=== PATIENT | female | born 1980 | race Caucasian/White ===

== ENCOUNTER 2016-10-15 23:25 | Emergency (ER) | payer OTHER ==
[~2016-10-15] VITALS: Ht 162.6 cm; Wt 82.3 kg
[2016-10-15 23:35] VITALS: BP 115/81
--- NOTE | 2016-10-16 00:15 | NUR ---
PT TAKEN TO OF
--- NOTE | 2016-10-16 00:32 | NUR ---
Dr. Mcclelland evaluating patient
[2016-10-16 00:50] VITALS: BP 125/73
--- NOTE | 2016-10-16 00:50 | NUR ---
Patient discharged with v/s stable. Written and verbal after care instructions given and explained. Patient alert, oriented and verbalized understanding of instructions. Ambulatory with steady gait. All questions addressed prior to discharge. ID band removed. Patient advised to follow up with PMD. Rx of Phenergan DM given. Patient educated on indication of medication including possible reaction and side effects. Opportunity to ask questions provided and answered.
== END 2016-10-16 00:50 | disposition home or self-care (01) ==
LOC: MED 23:25
DX: J20.9 Acute bronchitis, unspecified (principal)
CPT/HCPCS: 71020; 99284

== ENCOUNTER 2017-12-06 12:05 | Emergency (ER) | payer OTHER ==
[~2017-12-06] VITALS: Ht 162.6 cm; Wt 68.0 kg
[2017-12-06 12:07] VITALS: BP 135/89
--- NOTE | 2017-12-06 12:11 | NUR ---
PATIENT AMBULATED TO BED 8 AT THIS TIME.
--- NOTE | 2017-12-06 12:20 | NUR ---
PATIENT PRESENTS TO ED WITH COMPLAINTS OF SHAKINESS, COLD/HOT FLASHES, AND GENERALIZED ILL FEELING. PATIENT STATES SHE HAS AN ONGOING TOOTHACHE AND A COWORKER GAVE HER A NORCO AND SHE HAS FELT ILL SINCE. SKIN IS PINK/WARM/DRY; AAOX4 WITH EVEN AND STEADY GAIT; LUNGS CLEAR BL; HR EVEN AND REGULAR; PT DENIES ANY FEVER, CP, SOB, OR COUGH AT THIS TIME; PATIENT STATES PAIN OF 0/10 AT THIS TIME; VSS; PATIENT POSITIONED FOR COMFORT; HOB ELEVATED; BEDRAILS UP X1; BED DOWN. ER MD MADE AWARE OF PT STATUS.
[2017-12-06] MEDS ORDERED: NACL 0.9% 1,000 ML IV ONE (13:00)
[2017-12-06 13:41] VITALS: BP 135/89
--- NOTE | 2017-12-06 13:42 | NUR ---
Patient discharged with v/s stable. Written and verbal after care instructions given and explained. Patient alert, oriented and verbalized understanding of instructions. Ambulatory with steady gait. All questions addressed prior to discharge. ID band removed. Patient advised to follow up with PMD. Rx of MOTERIN AND TRAMADOL given. Patient educated on indication of medication including possible reaction and side effects. Opportunity to ask questions provided and answered.
== END 2017-12-06 13:42 | disposition home or self-care (01) ==
LOC: MED 12:05
DX: K08.89 Other specified disorders of teeth and supporting structures (principal); R53.1 Weakness
CPT/HCPCS: 99283

== ENCOUNTER 2017-12-22 05:37 | Emergency (ER) | payer OTHER ==
[~2017-12-22] VITALS: Ht 162.6 cm; Wt 69.6 kg
[2017-12-22 05:45] VITALS: BP 117/77
[2017-12-22] MEDS ORDERED: IBUPROFEN 800 MG TAB PO ONE (06:00)
[2017-12-22] MEDS ORDERED: ONDANSETRON 4 MG ODT PO ONE (06:00)
[2017-12-22] MEDS ORDERED: SUMAtriptan 6 MG/0.5 ML VIAL SUBQ ONE (06:00)
[2017-12-22 06:43] VITALS: BP 117/77
== END 2017-12-22 06:43 | disposition home or self-care (01) ==
LOC: MED 05:37
DX: R51 Headache (principal); R11.0 Nausea
CPT/HCPCS: 96372; 99283; J3030; S0119

== ENCOUNTER 2018-09-13 11:47 | Emergency (ER) | payer SELFPAY ==
[~2018-09-13] VITALS: Ht 162.6 cm; Wt 65.8 kg
[2018-09-13 12:05] VITALS: BP 131/78
--- NOTE | 2018-09-13 12:08 | NUR ---
PT SENT TO LOBBY TO WAIT FOR A BED.
--- NOTE | 2018-09-13 13:06 | NUR ---
PT AMBULATED TO BED 01.
--- NOTE | 2018-09-13 13:15 | NUR ---
PT BIB SELF TO THE ED WITH THE CHIEF C/O ABSCESS IN BETWEEN BREAST X TUESDAY. PT STATES IT WAS PIMPLE AND SQUEEZE. STARTED TO GET RED AND SWELLING SINCE THEN. PT HAD B/L BREAST SURGERY ON JULY. PT WAS SEEN BY DOCTOR IN [place] AND IS TAKING LEVOFLOXACIN AND CLARITIN SINCE THEN. REPORTS PUS DISCHARGE FROM ABSCESS. DENIES FEVER. DENIES ANY N/V/D. DENIES ANY OTHER PROBLEM AT THIS TIME. AFEBRILE. STATES PAIN OF 9/10 AT THIS TIME. VSS. ER AWARE.
[2018-09-13] MEDS ORDERED: CLINDAMYCIN 600 MG in DEXTROSE 5% 50 ML IV ONE (14:00)
[2018-09-13] MEDS ORDERED: NACL 0.9% 1,000 ML IV ONE (14:00)
[2018-09-13 14:33] LABS: BASOPHILS % (AUTO) 0.4 % (0.0-2.0); EOSINOPHILS # (AUTO) 0.2 K/uL (0-0.4); EOSINOPHILS % (AUTO) 1.8 % (0.0-4.0); HEMATOCRIT 32.4 % (36-48); HEMOGLOBIN 10.6 g/dL (12.0-16.0); LYMPHOCYTES # (AUTO) 1.1 K/uL (2.5-16.5); LYMPHOCYTES % (AUTO) 8.6 % (20.5-51.1); MEAN CORPUSCULAR HEMOGLOBIN 30 pg (27-31); MEAN CORPUSCULAR HGB CONC 33 g/dL (33-37); MEAN CORPUSCULAR VOLUME 91.2 fL (80-94); MONOCYTES % (AUTO) 8.2 % (1.7-9.3); NEUTROPHILS # (AUTO) 10.2 K/uL (1.8-7.7); PLATELET COUNT (AUTO) 220 K/uL (140-450); RED BLOOD CELL COUNT(AUTO) 3.55 MIL/uL (4.20-5.40); RED CELL DISTRIBUTION WIDTH 14.2 % (11.6-13.7); WHITE BLOOD COUNT (AUTO) 12.5 K/uL (4.8-10.8)
[2018-09-13 14:50] LABS: CARBON DIOXIDE 27.5 mmol/L (21-32); CREATININE 0.6 mg/dL (0.6-1.3); POTASSIUM 3.5 mmol/L (3.5-5.1); TOTAL BILIRUBIN 0.4 mg/dL (0.0-1.0)
[2018-09-13] MEDS ORDERED: CLINDAMYCIN 600 MG/4 ML VIAL ONE (15:54)
--- NOTE | 2018-09-13 17:00 | NUR ---
PT APPEARS RELAXED RESTING IN BED. NO C/O PAIN. VSS.
--- NOTE | 2018-09-13 19:00 | NUR ---
Patient discharged with v/s stable. Written and verbal after care instructions given and explained. Patient alert, oriented and verbalized understanding of instructions. Ambulatory with steady gait. All questions addressed prior to discharge. ID band removed. Patient advised to follow up with PMD. Rx of CLINDAMYCIN HYDROCHLORIDE given. Patient educated on indication of medication including possible reaction and side effects. Opportunity to ask questions provided and answered.
[2018-09-13 19:12] VITALS: BP 116/73
== END 2018-09-13 19:00 | disposition home or self-care (01) ==
LOC: MED 11:47
DX: L03.313 Cellulitis of chest wall (principal)
CPT/HCPCS: 36415; 71260; 80053; 81002; 81025; 83605; 85025; 96365; 99284; J3490; J7030; J7060; Q9967